=== PATIENT | female | born 1975 | race Caucasian/White ===

== ENCOUNTER 2017-08-23 08:06 | Observation (INO) | payer OTHER ==
[2017-08-23] MEDS ORDERED: LIDOCAINE 1% 2 ML INJ ONE (09:13)
[2017-08-23] MEDS ORDERED: LIDOCAINE 1% 2 ML INJ ID PRN (09:28)
[2017-08-23] MEDS ORDERED: LR 1,000 ML IV ONE (09:28)
--- NOTE | 2017-08-23 09:43 | PDANEPAE ---
ANE History of Present Illness 41 yo for mastectomy /reconstruction ANE Past Medical History - Cardiovascular History Hx Hypertension: No Hx Arrhythmias: No Hx Chest Pain: No Hx Coronary Artery / Peripheral Vascular Disease: No Hx CHF / Valvular Disease: No Hx Palpitations: No Cardiovascular History Comment: BP RUNS LOW. HX OF SVT 2005 HAD ABLATION PERFORMED NONE SINCE - Pulmonary History Hx COPD: No Hx Asthma/Reactive Airway Disease: No Hx Recent Upper Respiratory Infection: No Hx Oxygen in Use at Home: No Hx Sleep Apnea: No Sleep Apnea Screening Result - Last Documented: Negative - Neurologic History Hx Cerebrovascular Accident: No Hx Seizures: No Hx Dementia: No - Endocrine History Hx Diabetes: No - Renal History Hx Renal Disorders: No - Liver History Hx Hepatic Disorders: No - Neurological & Psychiatric Hx Hx Neurological and Psychiatric Disorders: No - Cancer History Hx Cancer: Yes Cancer History Comment: CERVICAL 2014 - Congenital Disorder History Hx Congenital Disorders: No - GI History Hx Gastrointestinal Disorders: No - Other Health History Other Health History: LUPUS. FIBROCYSTIC BREAST DX - Chronic Pain History Chronic Pain: No - Surgical History Prior Surgeries: CECIL BREAST LUMPECTOMIES 06/2017. WITH POST BLEEDING AT [facility] IN [place]. MULTIPLE LUMPECTOMIES. HYSTERECTOMY FOR CA. CARDIAC ABLATION FOR SVT. LT HERNIA ANE Review of Systems Review of Systems: - Exercise capacity METS (RN): 4 METS ANE Patient History - Allergies Allergies/Adverse Reactions: adhesive tape Allergy (Verified 08/12/17 12:03) SCARRING codeine Allergy (Verified 08/12/17 10:38) Rash erythromycin base Allergy (Verified 08/12/17 10:38) Rash fentanyl Allergy (Verified 08/12/17 10:38) Rash - Home Medications Home medications: home medication list seen and reviewed Home Medications: Gabapentin [Neurontin 300 MG (*)] 600 mg PO HS 08/12/17 [Last Taken 08/22/17] Hydroxychloroquine Sulfate [Plaquenil 200 mg (*)] 200 mg PO HS 08/12/17 [Last Taken 08/22/17] Duloxetine HCl DAILY 08/23/17 [Last Taken 08/22/17] - NPO status NPO Status: no food or drink >8 hours NPO Since - Liquids (Date): 08/22/17 NPO Since - Liquids (Time): 22:00 NPO Since - Solids (Date): 08/22/17 NPO Since - Solids (Time): 16:00 - Anes Hx Anes Hx: post operative nausea and vomiting - Smoking Hx Smoking Status: Current some day smoker ANE Labs/Vital Signs - Vital Signs Blood Pressure: 97/59 Heart Rate: 63 Respiratory Rate: 16 O2 Sat (%): 97 Height: 5 ft 1 in Weight: 41.73 kg ANE Physical Exam - Airway Mallampati Score: Class 2 Mouth exam: normal dental/mouth exam - Pulmonary Pulmonary: no respiratory distress - Cardiovascular Cardiovascular: regular rate and rhythym - ASA Status ASA Status: II ANE Anesthesia Plan Anesthesia Plan: general endotracheal anesthesia
[2017-08-23] MEDS ORDERED: MIDAZOLAM 2 MG/2 ML VIAL IVP ONE (09:44)
[2017-08-23] MEDS ORDERED: HYDROmorphONE/DILAUDID 2 MG/ML INJ ONE (09:49)
[2017-08-23] MEDS ORDERED: REMIFENTANIL HCL 1 MG VIAL ONE ×2 (09:49→11:41)
[2017-08-23] MEDS ORDERED: PROPOFOL/EMULSION 500 MG/50 ML BOTTLE IV ONE ×2 (09:49→11:41)
[2017-08-23] MEDS ORDERED: ceFAZolin 2 GM/SWFI 2 GM/20 ML SYR IVP ONE ×3 (10:00→11:36)
--- NOTE | 2017-08-23 10:00 | PDHPUP ---
History & Physical Update H&P update statement: This history and physical update is based on an assessment of the patient which was completed after admission or registration (within 24 hours), but prior to the surgery/procedure. H&P update: H&P reviewed & patient examined, no change in patient's condition since H&P completed
--- NOTE | 2017-08-23 10:02 | POSTOPPROG ---
Post Op Note Date of Operation: 08/23/17 Surgeon: Tarun Camargo (Jose Turner (plastics)) Outboard Motorboat Operator: Anjum Stoll SA Anesthesiologist: Nurys Anesthesia: GET(General Endotracheal) Pre-op Diagnosis: Family History Breast Cancer Post-op Diagnosis: Same Procedure: Bilat simple mast with SLNB, immed TE reconstr Inf/Abcess present in the surg proc area at time of surgery?: No EBL: Minimal Drains: Andrew White Specimen(s): breasts, nodes
[2017-08-23] MEDS ORDERED: BUPIVACAINE 0.25% 30 ML SDV ONE (10:28)
[2017-08-23] MEDS ORDERED: BACITRACIN ZINC 14.2 GM OINTTUBE TP ONE (10:28)
[2017-08-23] MEDS ORDERED: BACITRACIN 50,000 UNITS/10 ML SYR IRR ONE (10:29)
[2017-08-23] MEDS ORDERED: ceFAZolin 1 GM/5 ML SYR ONE (10:29)
[2017-08-23] MEDS ORDERED: GENTAMICIN SULFATE 80 MG/2 ML VIAL ONE (10:29)
[2017-08-23] MEDS ORDERED: PROMETHAZINE HCL 25 MG/ML INJ IVP PRN (11:35)
[2017-08-23] MEDS ORDERED: TEMAZEPAM 15 MG CAP PO PRN (11:35)
[2017-08-23] MEDS ORDERED: ONDANSETRON 4 MG/2 ML VIAL IVP PRN ×2 (11:35→13:06)
[2017-08-23] MEDS ORDERED: ROCURONIUM 50 MG/5 ML VIAL ONE (11:37)
[2017-08-23] MEDS ORDERED: NALOXONE HCL 0.4 MG/ML INJ IVP PRN (13:06)
[2017-08-23] MEDS ORDERED: PROMETHAZINE HCL 25 MG/ML INJ ONE (13:40)
[2017-08-23] MEDS: PROMETHAZINE HCL 25 MG/ML INJ IVP PRN ×2 (13:43→13:56)
--- NOTE | 2017-08-23 13:48 | GOP ---
[f rep st] OPERATIVE REPORT DATE OF OPERATION: 08/23/2017 SURGEON: Carmel Turner Jr., MD LABEL PRINTER: Daniel Stoll CST, by surgeon request (skilled surgical dressing maker was necessary due t o the technical complexity of the case and the desire to minimize patient anesthesia time. ANESTHESIA: Patient had a general inhalational anesthetic. ANESTHESIOLOGIST: Saadia Nuno MD. PREOPERATIVE DIAGNOSIS: High-risk breast cancer patient. POSTOPERATIVE DIAGNOSIS: High-risk breast cancer patient. PROCEDURE PERFORMED: Immediate bilateral nipple-sparing mastectomy utilizing tissue expanders and hu man dermal allograft. FINDINGS: ESTIMATED BLOOD LOSS: During reconstruction was 20 cc. INDICATIONS: The patient is a 41-year-old white female, who has had multiple bilateral breast biopsi es that have previously been benign, but remains a high-risk for breast cancer. Given the increasing risk and desire to minimize ongoing procedures, she elected to undergo a bilateral mastectomy. She was taken to the operating room for bilateral mastectomy in conjunction with immediate tissue expande r placement. DESCRIPTION OF PROCEDURE: After the risks and benefits of the procedure were explained to the patien t, highlighting bleeding, infection, asymmetry, numbness, weakness, damage to vessels or nerves, post operative pain, postoperative mastectomy pain syndrome, need for premature removal of expanders and p artial or complete skin loss or nipple loss, formal operative consent was obtained. She was taken to the operating room. After adequate inhalational general anesthesia was provided by Dr. Robert Nuno , an uncomplicated bilateral nipple-sparing mastectomy with sentinel lymph node mapping was performed by Dr. Camargo. Reconstruction began by irrigating the pockets meticulously with normal saline and achi eving meticulous hemostasis. Subpectoral pocket was then created beneath the pectoralis major muscle to precisely fit an Allergan style 133FX-13 tissue fountain operator. The tissue fountain operator was tested, evacua agustin of air, and sutured down to the chest wall in the correct position using 2-0 PDS suture. An Allo Derm medium 16 x 20 cm sheet of acellular dermis graft was triple-rinsed in normal saline, soaked in triple antibiotic saline. It was cut in half, divided to reconstruct both breasts, and then trimmed to reconstruct the inferior pole of both breasts. It was sutured over the inferior pole of the expan cora bilaterally using a running 2-0 Vicryl suture. The pocket was again irrigated using normal salin e. Skin and mastectomy flap viability was assessed. I had to trim the cranial edge of the mastectom y incision to get back to good healthy bleeding tissue. The patient had 15 round EFREM drains placed. The pockets were irrigated with double antibiotic saline solution, and the incision closed in 2 layer s. She had 300 cc of air instilled into both tissue expanders. This allowed good obliteration of th e space from the mastectomy without undue tension on the mastectomy flaps. She had bacitracin, Xeroform, and 4 x 4s applied. She had drains placed to bulb suction. She was extubated in the opera ting room and taken to the recovery room awake and in stable condition. TISSUE EXPANDERS: SportyBirdan 133FX-13-T filled with 300 cc of air, bilaterally. COMPLICATIONS: None. DRAINS: Two drains placed. /[id number]/MODL
--- NOTE | 2017-08-23 13:48 | GOP ---
[f rep st] OPERATIVE REPORT DATE OF OPERATION: 08/23/2017 SURGEON: Tarun Camargo MD PLASTIC SURGEON: Carmel Turner MD HYPERBARIC TECH: Daniel Stoll, TOOL CRIB MANAGER. PREOPERATIVE DIAGNOSIS: Family history of breast carcinoma. POSTOPERATIVE DIAGNOSIS: Family history of breast carcinoma. PROCEDURE PERFORMED: Bilateral prophylactic simple mastectomy with bilateral axillary sentinel node sampling. INDICATIONS: 41-year-old female with a strong family history of breast carcinoma. The patient has undergone numerous benign bilateral breast biopsies. She has opted to undergo bilateral prophylactic mastectomies at this time with axillary sentinel node sampling. Risks and benefits were explained of bleeding, infection, future breast cancer risk development, skin flap necrosis, arm edema, nerve injury, as well as indications for completion axillary dissection. The patient opted to avoid preoperative MRI thus the role for sentinel node sampling. All questions are entertained. She desires to proceed. A rn surgical is standard, necessary and customary for the safe performance of this procedure. DESCRIPTION OF PROCEDURE: General anesthesia was induced upon returning from bilateral lymphoscintigraphy. The breasts were incised through bilateral lower outer quadrant incisions. Using electrocautery, the extremely dense tissue was taken to the sternum, clavicles, inframammary fold as well as latissimus dorsi muscle laterally. Bilateral nipple-areolar complexes were completely spared. There was extensive scarring noted from her prior biopsy cavities. The specimens were taken high up into the axillary tail of Velazquez and removed from the chest wall incorporating the pectoralis major fascia. Specimens were tagged for orientation and sent for permanent processing. Bilateral axillae were opened. The right disclosed a hot node measuring 25,000 units on the gamma counter with background activity all being less than 250 units. The left axilla disclosed a solitary hot node as well, measuring 20,000 units on the gamma counter with the background activity all less than 400 units. No suspicious adenopathy was present on either side. Satisfactory hemostasis was assured. The flaps appeared pink and viable. Care of the case was turned to Dr. Turner for tissue grapple crew leader placement and wound closure. /[id number]/MODL MTDD
[2017-08-23] MEDS ORDERED: HYDROmorphONE/DILAUDID 1 MG/ML INJ ONE (13:58)
[2017-08-23] MEDS: HYDROmorphONE/DILAUDID 1 MG/ML INJ IVP PRN ×2 (13:59→14:45)
[2017-08-23] MEDS ORDERED: SCOPOLAMINE HYDROBROMIDE 1 MG/3 DAYS PATCH TD ONE ×2 (14:34→14:45)
[2017-08-23] MEDS: ALPRAZolam 0.25 MG TAB PO SCH ×2 (15:35→21:46)
[2017-08-23] MEDS: LR 1,000 ML IV SCH (16:05)
[2017-08-23] MEDS: HYDROCODONE/APAP 5/325 TAB PO PRN ×3 (16:26→23:06)
--- NOTE | 2017-08-23 17:04 | POSTANESTH ---
Post Anesthetic Evaluation Cardiovascular Status: Normal, Stable Respiratory Status: Normal, Stable, Requires Airway Assist Level of Consciousness/Mental Status: Can Participate in Eval, Moderately Sleepy Pain Control: Adequate, Prn Tx Ordered Nausea/Vomiting Control: Adequate, Prn Tx Ordered Complications Possibly Related to Anesthesia: None Noted
[2017-08-23] MEDS ORDERED: ALPRAZolam 0.25 MG TAB PO PRN (17:26)
[2017-08-23] MEDS ORDERED: diphenhydrAMINE 50 MG CAP PO PRN (17:27)
--- NOTE | 2017-08-23 17:28 | SOAPPROG ---
SOAP Progress Note Assessment/Plan: Assessment:postop check - pain controlled - no nausea - ambulating - family at bedside - doing well - supportive care - no new changes. Plan: 08/23/17 17:27 Objective: Vital Signs Temp Pulse Resp BP Pulse Ox 36.6 C 104 H 15 116/77 100 08/23/17 13:56 08/23/17 16:43 08/23/17 16:43 08/23/17 16:43 08/23/17 16:43 08/22/17 08/23/17 08/24/17 05:59 05:59 05:59 Intake Total 1820 Output Total 145 Balance 1675 ICD10 Worksheet Patient Problems: Problems Problem Status Onset Family history of breast cancer Acute - ICD10 Problem Qualifiers (1) Family history of breast cancer
[2017-08-23] MEDS: KETOROLAC 15 MG/1 ML SDV IVP SCH (18:19)
[2017-08-23] MEDS ORDERED: GABAPENTIN 300 MG CAP PO SCH (21:00)
[2017-08-23] MEDS ORDERED: HYDROXYCHLOROQUINE SULFATE 200 MG TAB PO SCH (21:00)
[2017-08-24] MEDS: KETOROLAC 15 MG/1 ML SDV IVP SCH ×3 (00:09→12:09)
[2017-08-24] MEDS ORDERED: NS 500 ML IV ONE (00:30)
[2017-08-24] MEDS: LR 1,000 ML IV SCH ×2 (00:46→08:14)
[2017-08-24] MEDS: oxyCODONE IR 5 MG TAB PO PRN ×3 (02:30→15:13)
[2017-08-24] MEDS: HYDROCODONE/APAP 5/325 TAB PO PRN (08:06)
[2017-08-24] MEDS: ALPRAZolam 0.25 MG TAB PO SCH (08:08)
--- NOTE | 2017-08-24 11:54 | ASMTCMCOM ---
CM Note CM Note Notes: Patient is POD #1 elective bilateral mastectomy. She lives with her and children. I do not anticipate she will have any discharge needs, but if so, Case Management can assist. Date Signed: 08/24/2017 11:53 AM Electronically Signed By:Argenis Myrick RN
--- NOTE | 2017-08-24 12:14 | SOAPPROG ---
SOAP Progress Note Assessment/Plan: Assessment: ok night. pain fair control. no nausea. no cp or sob. avss. comfortable. flaps pink. nipples viable. GEMMA serosang. incision clean. s/p bilat mast. doing well overall. will add long acting analgesic (oxycontin). has rx at home. likely home later today. dc instructions explained. zohreh. michelle to see. cont supportive care measures. gemma teaching explained to . Plan: 08/23/17 17:27 08/24/17 12:12 Objective: Vital Signs Temp Pulse Resp BP Pulse Ox 36.4 C 82 18 88/48 L 96 08/24/17 08:00 08/24/17 08:00 08/24/17 08:00 08/24/17 08:00 08/24/17 08:00 08/23/17 08/24/17 08/25/17 05:59 05:59 05:59 Intake Total 5465 Output Total 990 310 Balance 4475 -310 ICD10 Worksheet Patient Problems: Problems Problem Status Onset Family history of breast cancer Acute - ICD10 Problem Qualifiers (1) Family history of breast cancer
[2017-08-24] MEDS ORDERED: DOCUSATE SODIUM 100 MG CAP PO SCH (12:15)
[2017-08-24 12:28] VITALS: BP 84/50; PULSE 64; RESP 16; TEMP 98.6; O2SAT 92
--- NOTE | 2017-08-24 17:03 | ASDISCHSUM ---
Discharge Information Plan Status:Home with No Needs Medically Cleared to Leave: Discharge Date:08/24/2017 03:30 PM CM D/C Disposition:Home, Routine, Self-Care ADT D/C Disposition:Home, Routine, Self-Care Projected Discharge Date:08/24/2017 03:30 PM Transportation at D/C:Family Discharge Delay Reason: Follow-Up Date:08/24/2017 03:30 PM Discharge Slot: Final Diagnosis: Placement Information Patient Contact Information Contact Name:LUZMA Relationship: Address:[address] Work Phone: City:[facility] Phone: [facility]/Zip Code:[place] [address] Email: Financial Information Financial Class:HMO and PPO Plans Primary Plan Desc:[employer] Primary Plan Number:[id number] Secondary Plan Desc: Secondary Plan Number: Assessment Information [facility] CM Progress Note CM Note CM Note Notes: Patient is POD #1 elective bilateral mastectomy. She lives with her and children. I do not anticipate she will have any discharge needs, but if so, Case Management can assist. Date Signed: 08/24/2017 11:53 AM Electronically Signed By:Argenis Myrick RN Intervention Information
== END 2017-08-24 15:30 | disposition home or self-care (01) ==
LOC: F3N 08:06 → F1N 15:25
PROVIDERS: ADMIT Surgery; ATTEND Surgery
PROC: 07B60ZX Excision of Left Axillary Lymphatic, Open Approach, Diagnostic (ICD-10-PCS; principal; 2017-08-23 10:00)
PROC: 07B50ZX Excision of Right Axillary Lymphatic, Open Approach, Diagnostic (ICD-10-PCS; principal; 2017-08-23 10:00)
PROC: 0HHV0NZ Insertion of Tissue Expander into Bilateral Breast, Open Approach (ICD-10-PCS; principal; 2017-08-23 10:00)
PROC: 0HBV0ZZ Excision of Bilateral Breast, Open Approach (ICD-10-PCS; principal; 2017-08-23 10:00)
DX: D24.1 Benign neoplasm of right breast (principal); D24.2 Benign neoplasm of left breast; M32.10 Systemic lupus erythematosus, organ or system involvement unspecified; Z80.3 Family history of malignant neoplasm of breast
CPT/HCPCS: 19303; 19357; 38525; A9520; G0378; J0690; J1170; J1200; J1885; J2250; J2550; J2704; Q4116